=== PATIENT | female | born 1935 | race Caucasian/White ===

== ENCOUNTER 2017-03-23 09:11 | Day surgery (SDC) | payer BC ==
[2017-03-18 09:22] VITALS: BMI 27.4
[2017-03-23 09:35] VITALS: TEMP 98.2
[2017-03-23] MEDS ORDERED: MIDAZOLAM HCL 2 MG/2 ML SINGLE DOSE VIAL ONE (09:56)
[2017-03-23] MEDS ORDERED: ACETAMINOPHEN 325 MG TABLET (FP) PO PRN (10:07)
[2017-03-23] MEDS ORDERED: ONDANSETRON 4 MG/2 ML VIAL IVPUSH PRN (10:07)
[2017-03-23] MEDS ORDERED: oxyCODONE HCL 5 MG TABLET PO PRN (10:07)
[2017-03-23] MEDS ORDERED: LACTATED RINGERS SOLUTION 1,000 ML IV SCH (10:15)
[2017-03-23 11:53] VITALS: BP 130/74; PULSE 58
--- NOTE | 2017-03-25 08:51 | OP ---
DATE OF OPERATION: 03/23/2017 PREOPERATIVE DIAGNOSIS: Left carpal tunnel syndrome. POSTOPERATIVE DIAGNOSIS: Left carpal tunnel syndrome. OPERATIVE PROCEDURE: Left carpal tunnel release. ANESTHESIA: Local with sedation. COMPLICATIONS: None. ESTIMATED BLOOD LOSS: Minimal. INDICATION FOR PROCEDURE: The patient is an 81-year-old female with the above finding, indicated for operative treatment. Risks, benefits, and alternatives were discussed with the patient at length. Proper informed consent was obtained. PROCEDURE: After proper identification of the patient and the correct operative site, the patient was brought to the operating room and placed supine on the operating table. All bony prominences were well padded. Sedation was given by the anesthesiologist, along with local anesthesia with 2% lidocaine. The left upper extremity was prepped and draped in the usual sterile fashion. A well-padded tourniquet was placed with a sterile prep. An Esmarch bandage was used to exsanguinate the left upper extremity. The tourniquet was inflated to 250 mmHg. A longitudinal incision was made in the proximal aspect of the palm. Incision was taken sharply through the skin, with blunt and sharp dissection through the subcutaneous tissues. Palmar fascia was divided longitudinally. Transcarpal ligament was divided longitudinally along with the distal 4 cm of the antebrachial fascia under direct visualization with loupe magnification. This provided complete release of the median nerve at the wrist. Wound was irrigated with saline and repaired with a 5-0 nylon suture. Sterile dressings were applied. She was reversed from anesthesia and brought to the recovery room in stable condition. She tolerated the procedure well. Carter [id number]
== END 2017-03-23 11:55 | disposition home or self-care (01) ==
LOC: FASU 09:11
PROVIDERS: ATTEND Orthopaedic Surgery Hand Surgery
PROC: 01N50ZZ Release Median Nerve, Open Approach (ICD-10-PCS; principal; 2017-03-23 10:35)
DX: G56.02 Carpal tunnel syndrome, left upper limb (principal)